=== PATIENT | male | born 1990 | race Caucasian/White ===

== ENCOUNTER 2018-05-29 09:51 | Day surgery (SDC) | payer OTHER ==
[~2018-05-29] VITALS: Ht 172.7 cm; Wt 88.5 kg
[~2018-05-29 09:51] MED LIST: LR 1,000 ML IV SCH; dexameTHASONE 4 MG/ML 1ML VIAL (J1100) IV ONE
[2018-05-29] MEDS ORDERED: ONDANSETRON 4MG/2ML VIAL (J2405) As Ordered ONE (13:12)
[2018-05-29] MEDS ORDERED: fentaNYL 100 MCG/2 ML INJECTION (J3010) As Ordered ONE ×2 (13:12→14:08)
[2018-05-29] MEDS ORDERED: ROCURONIUM BROMIDE 50 MG/5 ML VIAL As Ordered ONE (13:12)
[2018-05-29] MEDS ORDERED: MIDAZOLAM INJ 2 MG/2 ML VIAL (J2250) As Ordered ONE (13:12)
[2018-05-29] MEDS ORDERED: PROPOFOL 200 MG/20 ML VIAL As Ordered ONE (13:12)
[2018-05-29] MEDS ORDERED: LIDOCAINE 2% INJ 100 MG/5 ML SDV (FOR ANES.) As Ordered ONE (13:12)
[2018-05-29] MEDS ORDERED: METHYLENE BLUE 0.5% (5MG/ML) 10 ML AMP (PROVAYBLUE)(Q9968 PER 1MG) As Ordered ONE (13:29)
[2018-05-29] MEDS ORDERED: EPINEPHrine 1MG/ML INJ 30ML MD-VIAL As Ordered ONE (13:29)
[2018-05-29] MEDS ORDERED: LIDOCAINE W/EPINEPHRINE 1% 20ML VIAL As Ordered ONE (13:29)
[2018-05-29] MEDS ORDERED: SODIUM CHLORIDE 0.9% NASAL GEL 15GM (AYR) As Ordered ONE (13:29)
[2018-05-29] MEDS ORDERED: SUGAMMADEX SODIUM 500 MG/5 ML VIAL (BRIDION) As Ordered ONE (14:14)
[2018-05-29] MEDS ORDERED: PERCOCET 5MG/325MG TAB As Ordered ONE (14:55)
[2018-05-29] MEDS ORDERED: ONDANSETRON 4MG/2ML VIAL (J2405) IV PRN (15:15)
[2018-05-29] MEDS ORDERED: METOCLOPRAMIDE INJ 10MG/2ML VIAL (J2765) IV PRN (15:15)
[2018-05-29] MEDS ORDERED: PERCOCET 5MG/325MG TAB PO PRN (15:15)
[2018-05-29] MEDS ORDERED: LR 1,000 ML IV SCH ×2 (15:15)
[2018-05-29] MEDS ORDERED: fentaNYL 100 MCG/2 ML INJECTION (J3010) IV PRN (15:15)
[2018-05-29] MEDS ORDERED: AUGMENTIN 875 MG TAB PO ONE (16:00)
[2018-05-29 16:30] VITALS: BP 157/88
--- NOTE | 2018-05-29 19:56 | RO ---
DATE OF PROCEDURE: 05/29/2018 PREOPERATIVE DIAGNOSIS: Deviated nasal septum. POSTOPERATIVE DIAGNOSIS: Deviated nasal septum. PROCEDURE: Septoplasty. SURGEON: Dr. Kee Choi REFURBISH TECHNICIAN: ANESTHESIA: General. CLINICAL PREAMBLE: This 28-year-old man presented to the office with a history of chronic nasal congestion unresponsive to medical treatment, including nasal steroids. Physical examination revealed evidence of deviated nasal septum. Management options including septoplasty have been discussed. The patient understood and consented to the procedure. DESCRIPTION OF PROCEDURE: The patient was identified in preop holding and brought to the operating room in stable condition. In supine position on the operating table, patient received general anesthesia followed by orotracheal intubation without incident. The patient was prepped and draped in the usual fashion for the procedure. Both sides of the nasal cavity were packed using pledgets soaked in 1:1000 epinephrine. After removal of the pledgets, both sides of the nasal septum were infiltrated with 1% lidocaine with 1:100,000 epinephrine. The left hemitransfixion incision was made. Mucoperichondrium, mucoperiosteal flap was developed on the left side. The bony cartilaginous junction was identified and disarticulated. The deviated portion of the perpendicular plate and the vomer bone were isolated and then resected using the cutting Yariel-Shmuel forceps. Deviated portion of the nasal septal cartilage was also identified and resected. The maxillary crest was isolated and resected as well. At this time, the nasal septum returned to a midline position. The left hemitransfixion incision was then closed using #3-0 chromic. The Montesinos splint was inserted into each side of the nasal cavity and secured anteriorly using the nylon suture. At the end of the procedure, sponge and instrument counts were correct. No complications were encountered. Estimated blood loss was approximately 20 mL. General anesthesia was reversed, and the patient was extubated and brought to the recovery room in stable condition.
== END 2018-05-29 16:35 | disposition home or self-care (01) ==
LOC: M SDC 09:51
PROVIDERS: ATTEND Otolaryngology
DX: J34.2 Deviated nasal septum (principal)
CPT/HCPCS: 30520; 88300; J1100; J2250; J2405; J3010; Q9968